=== PATIENT | female | born 1990 | race Caucasian/White ===

== ENCOUNTER 2022-08-08 09:59 | Emergency (ER) | payer OTHER, SELFPAY ==
[2022-08-08 10:12] VITALS: BP 126/71; PULSE 116; RESP 18; TEMP 36.4; O2SAT 100
[2022-08-08 10:15] VITALS: BP 126/71; PULSE 116; RESP 18; TEMP 36.4; O2SAT 100
--- NOTE | 2022-08-08 10:34 | ED.URI ---
HPI - URI/Sore Throat General Chief Complaint: Upper Respiratory Infection Stated Complaint: sorethroat Time Seen by Provider: 08/08/22 10:02 Source: patient Mode of arrival: ambulatory Limitations: no limitations History of Present Illness HPI Narrative: 31-year-old female presents to [facility] with complaints of sore throat, fever, body aches and chills for the past 2 days. Patient's child was diagnosed with strep throat yesterday. Patient has been taking [id number] ibuprofen and Tylenol with minimal relief. Patient denies cough, congestion, runny nose, nausea, vomiting, diarrhea, shortness of breath or wheezing MD elicited complaint: fever and sore throat Onset (ago): day(s) (2) Able to tolerate fluids by mouth: Yes Exacerbating factors: swallowing Context: sick contacts (son) Treatments prior to arrival: acetaminophen and ibuprofen Related Data Home Medications Medication Instructions Recorded Confirmed acetaminophen 325 mg capsule 1,000 mg PO BID 08/08/22 08/08/22 (Tylenol) ergocalciferol (vitamin D2) 1,250 1,250 mcg PO DAILY 08/08/22 08/08/22 mcg (50,000 unit) capsule ibuprofen 800 mg tablet 800 mg PO TID 08/08/22 08/08/22 semaglutide (weight loss) 0.5 0.5 mg subcut WEEKLY 08/08/22 08/08/22 mg/0.5 mL subcutaneous pen injector (Wegovy) Allergies Allergy/AdvReac Type Severity Reaction Status Date / Time metoclopramide [From Reglan] Allergy Other Verified 08/08/22 10:13 prochlorperazine Allergy Other Verified 08/08/22 10:13 [From Compazine] Review of Systems Constitutional: Constitutional: Reports fatigue, Reports fever(s) and Denies weakness ENT: Denies vertigo, Denies dizziness, Denies nasal congestion and Reports sore throat Respiratory: Respiratory: Denies cough, Denies dyspnea and Denies wheezing Gastrointestinal: Gastrointestinal: Denies diarrhea, Denies nausea and Denies vomiting Integumentary/Breasts: Skin/Breast: Denies rash Neurologic: Denies vertigo, Denies dizziness, Denies syncope and Denies headache(s) [facility] Family History Family History Other Depression Hypertension Social History Social History Smoking status: Never smoker Alcohol intake: never Comments At time of signature, I agree with nursing past medical, surgical, social and family history. There is no relevant family history pertinent to the presenting complaint. Exam Const: General: healthy appearing, no acute distress and alert Nutritional Appearance: well nourished Orientation/consciousness: patient oriented x3 Limitations: no limitations HENMT: Head: normal to inspection Ears: external ears normal, TM's normal bilaterally and EAC's normal Face/Nose/Sinus: Normal external nose present Face and sinus: normal facial exam and sinuses nontender Mouth: Yes Normal oral and palatal mucosa present Teeth and gingiva: dentition normal and abnormal tooth and associated gingiva Throat: uvula midline Other: Mild erythema noted to posterior pharynx. Mild 1+ swelling noted to bilateral tonsils Eyes: Conjunctivae: conjunctivae normal Neck: Neck: normal visual inspection Chest: Chest palpation & inspection: normal inspection of the chest Resp: Effort & Inspection: normal respiratory effort and not labored Auscultation: clear to auscultation bilaterally, no crackles, no rales and no rhonchi Cardio: Rate: regular rate Rhythm: regular rhythm Heart sounds: no murmurs Skin: General skin exam: normal color Wounds: no wounds Neuro: General: patient oriented x3 Speech: normal speech Gait exam (Neuro): Normal gait present Psych: Affect: normal affect Attitude: cooperative Course Course Level of Care: Express Care Visit Vital Signs Vital signs: Vital Signs Temperature 36.4 C 08/08/22 10:12 Pulse Rate 116 H 08/08/22 10:12 Respiratory Rate 18 08/08/22 10:12 Blood Pr
== END 2022-08-08 10:40 | disposition home or self-care (01) ==
PROVIDERS: Emergency Provider Nurse Practitioner Family
DX: J02.0 Streptococcal pharyngitis (principal)
CPT/HCPCS: 87880; 99213; G0463

== ENCOUNTER 2022-12-18 08:38 | Emergency (ER) | payer OTHER, SELFPAY ==
[2022-12-18 08:47] VITALS: BP 120/67; PULSE 84; RESP 18; TEMP 36.7; O2SAT 99
[2022-12-18 08:48] VITALS: BP 120/67; PULSE 84; RESP 18; TEMP 36.7; O2SAT 99
--- NOTE | 2022-12-18 09:00 | ED.EYEPROB ---
HPI - Eye Problem General Chief complaint: Eye Problems Stated complaint: rt eye irritation Source: patient Mode of arrival: ambulatory Limitations: no limitations History of Present Illness HPI Narrative: 32-year-old female presents to [facility] with complaints of right eye irritation, redness, purulent drainage and matting since yesterday. Patient reports that her children recently had pinkeye. Patient reports that she did use 1-2 doses of her children's Polytrim eye drops with minimal relief. Patient does not wear contacts or glasses. Patient denies injury to her eye. Patient denies fever, bites or chills, nausea, vomiting or diarrhea. MD chief complaint: eye redness Onset (ago): day(s) (2) Location: right eye Associated symptoms: none Treatments Prior to Arrival: other (Prescription eyedrops) Related Data Home Medications Medication Instructions Recorded Confirmed ergocalciferol (vitamin D2) 1,250 1,250 mcg PO DAILY 08/08/22 12/18/22 mcg (50,000 unit) capsule semaglutide (weight loss) 0.5 0.5 mg subcut WEEKLY 08/08/22 12/18/22 mg/0.5 mL subcutaneous pen injector (DesignPax) Allergies Allergy/AdvReac Type Severity Reaction Status Date / Time metoclopramide [From Reglan] Allergy Other Verified 12/18/22 08:48 prochlorperazine Allergy Other Verified 12/18/22 08:48 [From Compazine] Review of Systems Constitutional: Constitutional: Denies chills, Denies fatigue, Denies fever(s) and Denies weakness Eyes: Comments: Right eye irritation, redness, purulent drainage and minimal ENT: Denies vertigo and Denies dizziness Respiratory: Respiratory: Denies cough, Denies dyspnea and Denies wheezing Gastrointestinal: Gastrointestinal: Denies diarrhea, Denies nausea and Denies vomiting Musculoskeletal: Musculoskeletal: Denies arthralgias and Denies joint swelling Integumentary/Breasts: Skin/Breast: Denies rash PMFSH Family History Family History Other Depression Hypertension Social History Social History Smoking status: Never smoker Alcohol intake: never Comments At time of signature, I agree with nursing past medical, surgical, social and family history. There is no relevant family history pertinent to the presenting complaint. Exam Const: General: healthy appearing and no acute distress Nutritional Appearance: well nourished Orientation/consciousness: patient oriented x3 Limitations: no limitations HENMT: Head: normal to inspection Mouth: Yes Normal oral and palatal mucosa present Eyes: Conjunctivae: conjunctival abnormality right conjunctival injection Pupils: Equal, round and reactive pupils present EOM: EOMs intact bilaterally Direct Ophthalmoscopy: no photophobia Other: Mild purulent drainage noted Neck: Neck: normal visual inspection Resp: Effort & Inspection: normal respiratory effort and not labored Auscultation: clear to auscultation bilaterally, no crackles, no rales, no rhonchi and no wheezes Cardio: Rate: regular rate Rhythm: regular rhythm Heart sounds: no murmurs Skin: General skin exam: normal color Rashes: no rashes Wounds: no wounds Neuro: General: patient oriented x3 Psych: Affect: normal affect Attitude: cooperative Course Course Level of Care: Express Care Visit Vital Signs Vital signs: Vital Signs Temperature 36.7 C 12/18/22 08:47 Pulse Rate 84 12/18/22 08:47 Respiratory Rate 18 12/18/22 08:47 Blood Pressure 120/67 12/18/22 08:47 Pulse Oximetry 99 12/18/22 08:47 Oxygen Delivery Room Air 12/18/22 08:47 Temperature 36.7 C 12/18/22 08:48 Pulse Rate 84 12/18/22 08:48 Respiratory Rate 18 12/18/22 08:48 Blood Pressure 120/67 12/18/22 08:48 Pulse Oximetry 99 12/18/22 08:48 Oxygen Delivery Room Air 12/18/22 08:48 MDM - Eye Problem MDM Narrative Medical decision making oj
== END 2022-12-18 09:11 | disposition home or self-care (01) ==
PROVIDERS: Emergency Provider Nurse Practitioner Family; PCP Physician Assistant
DX: H10.9 Unspecified conjunctivitis (principal)
CPT/HCPCS: 99213; G0463

== ENCOUNTER 2023-09-20 17:23 | Emergency (ER) | payer OTHER, SELFPAY ==
[2023-09-20 17:35] VITALS: BP 136/71; PULSE 83; RESP 16; TEMP 36.6; O2SAT 99
--- NOTE | 2023-09-20 17:35 | ED.URI ---
HPI - URI/Sore Throat General Chief Complaint: Upper Respiratory Infection Stated Complaint: Sore Throat/Exposure to Strep Time Seen by Provider: 09/20/23 17:35 Source: patient Mode of arrival: ambulatory Limitations: no limitations History of Present Illness HPI Narrative: 32 yo F presents with c/o sore throat, fatigue, swollen lymph nodes to neck for 2 days. and son both positive for strep. afebrile. All systems reviewed and negative except as noted above. Related Data Home Medications Medication Instructions Recorded Confirmed ergocalciferol (vitamin D2) 1,250 1,250 mcg PO DAILY 08/08/22 09/20/23 mcg (50,000 unit) capsule Allergies Allergy/AdvReac Type Severity Reaction Status Date / Time metoclopramide [From Reglan] AdvReac Intermediate Shakiness Verified 09/20/23 17:35 prochlorperazine AdvReac Intermediate Shakiness Verified 09/20/23 17:35 [From Compazine] Review of Systems Review of Systems: CONSTITUTIONAL: Denies fever, chills, or sweats. EYES: Denies visual changes, redness, or discharge. ENT: Denies rhinorrhea, congestion . Reports sore throat. Denies otalgia. CARDIOVASCULAR: Denies chest pain, palpitations, or edema. RESPIRATORY: Denies cough or dyspnea. GASTROINTESTINAL: Denies abdominal pain, nausea, vomiting, or diarrhea. GENITOURINARY: Denies dysuria or hematuria. SKIN: Denies rash or itching. MUSCULOSKELETAL: Denies back pain, joint pain, or myalgia. NEUROLOGIC: reports headache. Denies numbness, or weakness. PSYCHIATRIC: Denies anxiety or depression. All other systems reviewed are negative, except as documented in HPI. PMFSH Family History Family History Other Depression Hypertension Social History Social History Smoking status: Never smoker Alcohol intake: never Comments At time of signature, agree with nursing past medical, surgical, social and family history. There is no relevant family history pertinent to the presenting complaint. Exam Narrative: GENERAL: This is a well-nourished, well-developed patient, in no apparent distress. HEAD: normocephalic, atraumatic. EYES: PERRL. Sclera clear/white. Vision is grossly intact. EARS: External ears normal, auditory canals clear and without drainage, TMs normal without perforation. Hearing grossly intact. NOSE: External nose normal with no obvious nasal discharge, nares without redness, no rhinorrhea. THROAT: Mucous membranes moist, erythema with mild swelling. No exudates. NECK: Neck supple,tender With anterior cervical lymphadenopathy. No masses or thyromegaly. CARDIOVASCULAR: Regular rate and rhythm without murmurs, gallops, or rubs. RESPIRATORY: Clear to auscultation. Breath sounds equal bilaterally. No wheezes, rales, or rhonchi. SKIN: warm, Dry, intact with no suspicious lesions or rash, good texture and turgor. NEURO: awake, alert, and oriented to person, place and time. There were no obvious focal neurologic abnormalities. EXTREMITIES: No joint tenderness, effusion, or edema noted. Course Course Level of Care: Express Care Visit Vital Signs Vital signs: Vital Signs Temperature 36.6 C 09/20/23 17:35 Pulse Rate 83 09/20/23 17:35 Respiratory Rate 16 09/20/23 17:35 Blood Pressure 136/71 09/20/23 17:35 Pulse Oximetry 99 09/20/23 17:35 Oxygen Delivery Room Air 09/20/23 17:35 Temperature 36.6 C 09/20/23 17:35 Pulse Rate 83 09/20/23 17:35 Respiratory Rate 16 09/20/23 17:35 Blood Pressure 136/71 09/20/23 17:35 Pulse Oximetry 99 09/20/23 17:35 Oxygen Delivery Room Air 09/20/23 17:35 reviewed MDM - URI/Sore Throat MDM Narrative Medical decision making narrative: Patient is aware of diagnosis, understands and agrees to treatment plan. Anticipatory guidance given. Patient agrees to follow-up as directed and is aware of reasons to seek
== END 2023-09-20 17:57 | disposition home or self-care (01) ==
PROVIDERS: Emergency Provider Nurse Practitioner Family; PCP Physician Assistant
DX: J02.0 Streptococcal pharyngitis (principal); Z86.16 Personal history of COVID-19; Z80.9 Family history of malignant neoplasm, unspecified
CPT/HCPCS: 87880; 99213; G0463